=== PATIENT | female | born 1985 | race American Indian/Alaskan Native ===

== ENCOUNTER 2018-08-21 12:36 | Emergency (ER) | payer SELFPAY ==
[2018-08-21 12:46] VITALS: BP 168/82
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
[2018-08-21] MEDS ORDERED: NACL 0.9% 1000 ML 1,000 ML IV ONE (13:14)
[2018-08-21] MEDS ORDERED: TORADOL IV ONE (13:14)
[2018-08-21] MEDS ORDERED: ZOFRAN IV ONE (13:14)
[2018-08-21 14:16] LABS: BUN/Creatinine Ratio 12; Blood Urea Nitrogen 7 mg/dL (7-17); Calcium 8.9 mg/dL (8.4-10.2); Hemolysis Index 164
[2018-08-21 14:25] LABS: Basophils # (Auto) 0.1 K/mm3 (0.0-0.1); Basophils % (Auto) 1.3 % (0.0-1.8); Eosinophils # (Auto) 0.1 K/mm3 (0.0-0.4); Eosinophils % (Auto) 1.2 % (0.0-4.3); Hematocrit 27.2 % (30.3-42.9); Hemoglobin 8.1 gm/dl (10.1-14.3); Lymphocytes # (Auto) 2.8 K/mm3 (1.2-5.4); Lymphocytes % (Auto) 31.8 % (13.4-35.0); Mean Corpuscular HGB Conc 30 % (30-34); Monocytes # (Auto) 0.7 K/mm3 (0.0-0.8); Monocytes % (Auto) 8.2 % (0.0-7.3); Platelet Count 426 K/mm3 (140-440); Red Blood Count 4.56 M/mm3 (3.65-5.03); Red Cell Distribution Width 19.5 % (13.2-15.2)
[2018-08-21 14:26] LABS: Mean Corpuscular Volume 60 fl (79-97)
--- NOTE | 2018-08-21 15:10 | Emergency Department Report ---
ED General Adult HPI - General Chief complaint: Headache Stated complaint: SOB /NIELSON Time Seen by Provider: 08/21/18 12:42 Source: patient Mode of arrival: Ambulatory Limitations: No Limitations - History of Present Illness Initial comments: Patient is a 33-year-old female who has a past medical history of heavy menstrual periods and history of anemia with multiple transfusions in the past who is coming in secondary to a headache last 3-4 days. Patient also states she has some mild shortness of breath when she walks upstairs or any type of long distance. She states she's had some mild dizziness as well for the last week. Patient states headache is throbbing sensation she does have a history of headaches. Patient states also that she was changing a light bulb earlier and pliable shocked her which she states made her headache worse. Patient denies any nausea vomiting diarrhea fevers chills cough, congestion of chest pain. Severity scale (0 -10): 8 - Related Data Previous Rx's Medication Instructions Recorded Last Taken Type Docusate Sodium [Colace] 100 mg PO BID #20 capsule 08/21/18 Unknown Rx Ferrous Sulfate [Ferrous Sulfate 324 mg PO BID #20 tablet. 08/21/18 Unknown Rx 324 MG] Ibuprofen [Ibu] 600 mg PO Q6HR PRN #20 tablet 08/21/18 Unknown Rx traMADol [Ultram] 50 mg PO Q6HR PRN #12 tablet 08/21/18 Unknown Rx Allergies Allergy/AdvReac Type Severity Reaction Status Date / Time iron Allergy Unknown Verified 08/21/18 12:41 ED Review of Systems ROS: Stated complaint: SOB /NIELSON Other details as noted in HPI Comment: All other systems reviewed and negative ED Past Medical Hx - Past Medical History Previous Medical History?: Yes Additional medical history: Anemia - Surgical History Past Surgical History?: Yes Additional Surgical History: C section - Social History Smoking Status: Never Smoker Substance Use Type: Alcohol - Medications Home Medications: Home Medications Medication Instructions Recorded Confirmed Last Taken Type Docusate Sodium [Colace] 100 mg PO BID #20 capsule 08/21/18 Unknown Rx Ferrous Sulfate [Ferrous Sulfate 324 mg PO BID #20 tablet. 08/21/18 Unknown Rx 324 MG] Ibuprofen [Ibu] 600 mg PO Q6HR PRN #20 tablet 08/21/18 Unknown Rx traMADol [Ultram] 50 mg PO Q6HR PRN #12 tablet 08/21/18 Unknown Rx ED Physical Exam - General Limitations: No Limitations General appearance: alert, in no apparent distress - Head Head exam: Present: atraumatic, normocephalic - Eye Eye exam: Present: normal appearance - ENT ENT exam: Present: mucous membranes moist - Neck Neck exam: Present: normal inspection - Respiratory Respiratory exam: Present: normal lung sounds bilaterally. Absent: respiratory distress, wheezes, rales, rhonchi - Cardiovascular Cardiovascular Exam: Present: regular rate, normal rhythm. Absent: systolic murmur, diastolic murmur, rubs, gallop - GI/Abdominal GI/Abdominal exam: Present: soft, normal bowel sounds. Absent: distended, tenderness, guarding, rebound - Extremities Exam Extremities exam: Present: normal inspection - Back Exam Back exam: Present: normal inspection - Neurological Exam Neurological exam: Present: alert, oriented X3 - Psychiatric Psychiatric exam: Present: normal affect, normal mood - Skin Skin exam: Present: warm, dry, intact, normal color. Absent: rash ED Course Vital Signs 08/21/18 08/21/18 12:44 13:30 Temperature 98.4 F Pulse Rate 94 H Respiratory 18 16 Rate Blood Pressure 168/82 O2 Sat by Pulse 99 Oximetry ED Medical Decision Making - Lab Data Result diagrams: 08/21/18 13:45 08/21/18 13:45 Lab Results 08/21/18 08/21/18 08/21/18 Range/Units 13:45 13:45 13:45 WBC 8.8 (4.5-11.0) K/mm3 RBC 4.56 (3.65-5.03) M/mm3 Hgb 8.1 L (10.1-14.3) gm/dl Hct 27.2 L (30.3-42.9) % MCV 60 L (79-97) fl MCH 18 L (28-32) pg MCHC 30 (30-34) % RDW 19.5 H (13.2-15.2) % Plt Count 426 (140-440) K/mm3 Lymph % (Auto) 31.8 (13.4-35.0) % [place] % (Auto) 8.2 H (0.0-7.3) % Eos % (Auto) 1.2 (0.0-4.3) % Baso % (Auto) 1.3 (0.0-1.8) % Lymph # 2.8 (1.2-5.4) K/mm3 [place]ven # 0.7 (0.0-0.8) K/mm3 Eos # 0.1 (0.0-0.4) K/mm3 Baso # 0.1 (0.0-0.1) K/mm3 Seg Neutrophils % 57.5 (40.0-70.0) % Seg Neutrophils # 5.1 (1.8-7.7) K/mm3 Sodium 134 L (137-145) mmol/L Potassium 4.9 (3.6-5.0) mmol/L Chloride 101.9 (98-107) mmol/L Carbon Dioxide 19 L (22-30) mmol/L Anion Gap 18 mmol/L BUN 7 (7-17) mg/dL Creatinine 0.6 L (0.7-1.2) mg/dL Estimated GFR > 60 ml/min BUN/Creatinine Ratio 12 % Glucose 96 (65-100) mg/dL Calcium 8.9 (8.4-10.2) mg/dL HCG, Qual Negative (Negative) - Medical Decision Making Patient was found to be anemic at 8.1 for her hemoglobin this is A Rash That Would Require an Emergent Blood Transfusion. Patient Started on Iron Supplements and the Patient Will Be Discharged Home. Patient Given Follow-Up with [facility] As Given [facility]. Patient Will Be Treated for Symptomatic Relief. Patient Discharged Home Critical care attestation.: If time is entered above; I have spent that time in minutes in the direct care of this critically ill patient, excluding procedure time. ED Disposition Clinical Impression: Symptomatic anemia, Headache Disposition: DC- TO HOME OR SELFCARE Is pt being admited?: No Does the pt Need Aspirin: No Condition: Stable Instructions: Iron Rich Diet (ED), Anemia (ED) Referrals: [facility] [Provider Group] - 3-5 Days [place] MACIEJ VALERIO MD [Referring] - 3-5 Days Time of Disposition: 15:13
== END 2018-08-21 15:33 | disposition home or self-care (01) ==
LOC: ED 12:36
DX: D64.9 Anemia, unspecified (principal); R51 Headache; R42 Dizziness and giddiness
CPT/HCPCS: 36415; 80048; 84703; 85025; 96361; 96374; 96375; 99283; J1885; J2405; J7030

== ENCOUNTER 2018-11-08 11:31 | Emergency (ER) | payer SELFPAY ==
[2018-11-08 11:58] VITALS: BP 117/66
--- NOTE | 2018-11-08 11:58 | Event Note ---
ED Screening Note Date of service: 11/08/18 Time: 11:55 ED Screening Note: 33 y/o female comes in dysuria vaginal bleeding pelvic cramping. This initial assessment/diagnostic orders/clinical plan/treatment(s) is/are subject to change based on patients health status, clinical progression and re- assessment by fellow clinical providers in the ED. Further treatment and workup at subsequent clinical providers discretion. Patient/guardian urged not to elope from the ED as their condition may be serious if not clinically assessed and managed. Initial orders include:
--- NOTE | 2018-11-08 12:17 | Emergency Department Report ---
ED Dysuria HPI - HPI Chief Complaint: Vaginal Bleeding Stated Complaint: HEAVY BLEEDING Time Seen by Provider: 11/08/18 12:16 Duration: 3 Days Severity: Mild Symptoms: Dysuria: Yes, Frequency: No, Suprapubic Pain: No, Flank Pain: No, Fever: No, Hematuria: No, Abdominal Pain: No, Previous UTI's: No Other History: Ms. Glass is a 33-year-old who comes to the ER with abnormal menses. She states that her menses are irregular and heavy the last couple months. She has a history of anemia. She last saw her OB approximately one year ago. She is not concerned for or STDs. She denies fever or pain. Patient is ambulatory nontoxic and afebrile on admission to the ER. pmh. anemia. rx. none ED Review of Systems ROS: Stated complaint: HEAVY BLEEDING Other details as noted in HPI Comment: All other systems reviewed and negative ED Past Medical Hx - Past Medical History Previous Medical History?: Yes Additional medical history: Anemia - Surgical History Past Surgical History?: Yes Additional Surgical History: C section - Social History Smoking Status: Never Smoker Substance Use Type: Marijuana - Medications Home Medications: Home Medications Medication Instructions Recorded Confirmed Last Taken Type Fluconazole [Diflucan TAB] 100 mg PO QDAY #1 tablet 11/08/18 Unknown Rx Sulfamethoxazole/Trimethoprim 1 each PO BID #6 tablet 11/08/18 Unknown Rx [Bactrim DS TAB] Dysuria Exam - Exam General: Vital signs noted. No distress. Alert and acting appropriately. Exam: Yes Moist Mucous Membranes, No CVA Tenderness, No Abdominal Tenderness, No Rigidity or Guarding ED Course Vital Signs 11/08/18 11:55 Temperature 98.0 F Pulse Rate 80 Respiratory 16 Rate Blood Pressure 117/66 [Left] O2 Sat by Pulse 98 Oximetry ED Medical Decision Making - Lab Data Result diagrams: 11/08/18 12:16 11/08/18 12:16 - Medical Decision Making Lab Results 11/08/18 11/08/18 11/08/18 Range/Units 12:16 12:16 Unknown WBC 6.3 (4.5-11.0) K/mm3 RBC 5.16 H (3.65-5.03) M/mm3 Hgb 11.1 (10.1-14.3) gm/dl Hct 36.2 (30.3-42.9) % MCV 70 L (79-97) fl MCH 22 L (28-32) pg MCHC 31 (30-34) % RDW 22.5 H (13.2-15.2) % Plt Count 263 (140-440) K/mm3 Sodium 136 L (137-145) mmol/L Potassium 4.1 (3.6-5.0) mmol/L Chloride 100.8 (98-107) mmol/L Carbon Dioxide 24 (22-30) mmol/L Anion Gap 15 mmol/L BUN 6 L (7-17) mg/dL Creatinine 0.7 (0.7-1.2) mg/dL Estimated GFR > 60 ml/min BUN/Creatinine Ratio 9 % Glucose 98 (65-100) mg/dL Calcium 9.1 (8.4-10.2) mg/dL Urine HCG, Qual Negative (Negative) Labs 11/08/18 11/08/18 11/08/18 12:16 12:16 Unknown WBC 6.3 RBC 5.16 H Hgb 11.1 Hct 36.2 MCV 70 L MCH 22 L MCHC 31 RDW 22.5 H Plt Count 263 Sodium 136 L Potassium 4.1 Chloride 100.8 Carbon Dioxide 24 Anion Gap 15 BUN 6 L Creatinine 0.7 Estimated GFR > 60 BUN/Creatinine Ratio 9 Glucose 98 Calcium 9.1 Urine HCG, Qual Negative Lab Results 11/08/18 11/08/18 11/08/18 Range/Units 12:16 12:16 Unknown WBC 6.3 (4.5-11.0) K/mm3 RBC 5.16 H (3.65-5.03) M/mm3 Hgb 11.1 (10.1-14.3) gm/dl Hct 36.2 (30.3-42.9) % MCV 70 L (79-97) fl MCH 22 L (28-32) pg MCHC 31 (30-34) % RDW 22.5 H (13.2-15.2) % Plt Count 263 (140-440) K/mm3 Sodium 136 L (137-145) mmol/L Potassium 4.1 (3.6-5.0) mmol/L Chloride 100.8 (98-107) mmol/L Carbon Dioxide 24 (22-30) mmol/L Anion Gap 15 mmol/L BUN 6 L (7-17) mg/dL Creatinine 0.7 (0.7-1.2) mg/dL Estimated GFR > 60 ml/min BUN/Creatinine Ratio 9 % Glucose 98 (65-100) mg/dL Calcium 9.1 (8.4-10.2) mg/dL Urine Color Red (Yellow) Urine Turbidity Cloudy (Clear) Urine pH 6.0 (5.0-7.0) Ur Specific [place] 1.021 (1.003-1.030) Urine Protein 100 mg/dl (Negative) mg/dL Urine Glucose (UA) 50 (Negative) mg/dL Urine Ketones Tr (Negative) mg/dL Urine Blood Lg (Negative) Urine Nitrite Neg (Negative) Ur Reducing Substances Not Reportable Urine Bilirubin Neg (Negative) Urine Ictotest Not Reportable Urine Urobilinogen < 2.0 (<2.0) mg/dL Ur Leukocyte Esterase Tr (Negative) Urine WBC (Auto) > 182.0 H (0.0-6.0) /HPF Urine RBC (Auto) > 182.0 (0.0-6.0) /HPF Urine HCG, Qual Negative (Negative) lmp was heavy and only last a few days started menses 3 days ago and again heavy states under a lot of stress no abd pain; no discharge; not concerned for STI she is concerned given her anemia that her blood counts are low for she had required transfusions in the past ua noted current menses given WBC over 182- pt given IV rocephin and NS will dc home with obgyn follow up. Critical care attestation.: If time is entered above; I have spent that time in minutes in the direct care of this critically ill patient, excluding procedure time. ED Disposition Clinical Impression: Dysfunctional uterine bleeding, UTI (urinary tract infection) Disposition: DC-01 TO HOME OR SELFCARE Is pt being admited?: No Does the pt Need Aspirin: No (n) Condition: Stable Instructions: Menstruation (ED) Additional Instructions: DIET TOLERATED MEDS ORDERED TODAY IN ER FOLLOW INSTRUCTIONS ON THE BOTTLE FOLLOW UP PCP WITHIN 48 HOURS TO ENSURE YOU ARE GETTING BETTER ACTIVITY TOLERATED MOTRIN OR TYLENOL FOR PAIN OR FEVER RETURN TO THE ER FOR WORSENING SYMPTOMS NOT RELIEVED BY YOUR MEDICATIONS. HBG NORMAL TODAY negative FOLLOW UP WITH OBGYN TO EVALUATE YOUR IRREGULAR PERIODS AND TO BE SURE THIS UTI GOES AWAY HYDRATE WELL WITH WATER. Prescriptions: Sulfamethoxazole/Trimethoprim [Bactrim DS TAB] 1 each PO BID #6 tablet Fluconazole [Diflucan TAB] 100 mg PO QDAY #1 tablet Referrals: MACIEJ LESLIE MD [Primary Care Provider] - 3-5 Days DYLAN RAMIREZ MD [Staff Physician] - 3-5 Days Time of Disposition: 12:17
[2018-11-08 12:35] LABS: Hematocrit 36.2 % (30.3-42.9); Hemoglobin 11.1 gm/dl (10.1-14.3); Mean Corpuscular HGB Conc 31 % (30-34); Mean Corpuscular Volume 70 fl (79-97); Platelet Count 263 K/mm3 (140-440); Red Blood Count 5.16 M/mm3 (3.65-5.03)
[2018-11-08 12:38] LABS: Red Cell Distribution Width 22.5 % (13.2-15.2)
[2018-11-08 12:46] LABS: BUN/Creatinine Ratio 9; Blood Urea Nitrogen 6 mg/dL (7-17); Calcium 9.1 mg/dL (8.4-10.2)
[2018-11-08 12:47] LABS: Hemolysis Index 42
[2018-11-08 12:51] LABS: HCG Qualitative,Urine Negative (Negative)
[2018-11-08 12:54] LABS: Bilirubin,Urine NEG (Negative); Blood,Urine LG (Negative); Color,Urine Red (Yellow); Urobilinogen,Urine < 2.0 mg/dL (<2.0)
[2018-11-08 12:56] LABS: RBC,Urine > 182.0 /HPF (0.0-6.0)
[2018-11-08 12:57] LABS: WBC,Urine > 182.0 /HPF (0.0-6.0)
[2018-11-08] MEDS ORDERED: ROCEPHIN/NS 1 GM/50 ML 1 GM/50 ML BAG IV ONE (13:12)
[2018-11-08] MEDS ORDERED: NACL 0.9% 1000 ML 1,000 ML IV ONE (13:12)
== END 2018-11-08 14:51 | disposition home or self-care (01) ==
LOC: ED 11:31
DX: N39.0 Urinary tract infection, site not specified (principal); N93.8 Other specified abnormal uterine and vaginal bleeding; F12.10 Cannabis abuse, uncomplicated; D64.9 Anemia, unspecified; Z88.8 Allergy status to other drugs, medicaments and biological substances
CPT/HCPCS: 36415; 80048; 81001; 81025; 85027; 96365; 99283; J0696; J7030

== ENCOUNTER 2019-03-11 12:41 | Emergency (ER) | payer SELFPAY ==
--- NOTE | 2019-03-11 13:03 | Event Note ---
ED Screening Note Date of service: 03/11/19 Time: 12:56 ED Screening Note: This is a 33 y.o. F. that presents to the ER with dyspnea and palpitations for 4-5 days. Patient reports feeling nervous and anxious. Patient states she started drinking monster energy drinks. Patient states she is having night terrors about moving back to [place]. Reports one episode of hyperventilating while at work today. This initial assessment/diagnostic orders/clinical plan/treatment(s) is/are subject to change based on patients health status, clinical progression and re- assessment by fellow clinical providers in the ED. Further treatment and workup at subsequent clinical providers discretion. Patient/guardian urged not to elope from the ED as their condition may be serious if not clinically assessed and managed. Initial orders include: Labs
[2019-03-11 14:05] LABS: Mean Corpuscular HGB Conc 30 % (30-34); Platelet Count 263 K/mm3 (140-440); Red Blood Count 5.17 M/mm3 (3.65-5.03)
[2019-03-11 14:06] LABS: Hemoglobin 9.2 gm/dl (10.1-14.3); Mean Corpuscular Volume 60 fl (79-97)
[2019-03-11 14:20] LABS: BUN/Creatinine Ratio 14; Blood Urea Nitrogen 7 mg/dL (7-17); Calcium 8.8 mg/dL (8.4-10.2); Hemolysis Index 27
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
[2019-03-11 17:36] VITALS: BP 120/69
== END 2019-03-11 17:35 | disposition home or self-care (01) ==
LOC: ED 12:41
DX: F43.0 Acute stress reaction (principal); Z79.899 Other long term (current) drug therapy
CPT/HCPCS: 36415; 80048; 84484; 85027; 93005; 93010; 99283